=== PATIENT | female | born 1960 | race Caucasian/White ===

== ENCOUNTER 2018-06-07 10:37 | Outpatient (CLI) | payer OTHER | END 2018-06-07 13:40 | disposition home or self-care (01) | LOC: LAB 10:37 | DX: I10 Essential (primary) hypertension (principal); E11.9 Type 2 diabetes mellitus without complications; E03.8 Other specified hypothyroidism; E78.2 Mixed hyperlipidemia; Z12.11 Encounter for screening for malignant neoplasm of colon ==

== ENCOUNTER 2018-06-09 08:25 | Outpatient (CLI) | payer OTHER | END 2018-06-09 09:11 | disposition home or self-care (01) | LOC: MAMO-SONO 08:25 | DX: Z12.31 Encounter for screening mammogram for malignant neoplasm of breast (principal); N03.0 Chronic nephritic syndrome with minor glomerular abnormality ==

== ENCOUNTER → 2018-06-09 | Outpatient (CLI) | payer OTHER | END | disposition home or self-care (01) | LOC: NUCLEAR 10:26 | DX: M81.0 Age-related osteoporosis without current pathological fracture (principal) ==

== ENCOUNTER 2019-01-30 08:06 | Emergency (ER) | payer OTHER ==
[~2019-01-30] VITALS: Ht 167.6 cm; Wt 57.6 kg
== END 2019-01-30 12:31 | disposition home or self-care (01) ==
LOC: ER 08:06
DX: S80.01XA Contusion of right knee, initial encounter (principal); W18.09XA Striking against other object with subsequent fall, initial encounter; Y93.89 Activity, other specified; Y92.018 Other place in single-family (private) house as the place of occurrence of the external cause; Y99.8 Other external cause status